=== PATIENT | female | born 1990 | race Caucasian/White ===

== ENCOUNTER → 2019-06-04 11:12 | Outpatient (BNVA) | payer OTHER, SELFPAY | PROVIDERS: Family Provider Internal Medicine; PCP Internal Medicine; Visit Provider Specialist | DX: G43.711 Chronic migraine without aura, intractable, with status migrainosus (principal) | CPT/HCPCS: 64615; J0585 ==

== ENCOUNTER → 2019-08-27 10:01 | Outpatient (BNVA) | payer OTHER, SELFPAY | PROVIDERS: Family Provider Internal Medicine; PCP Internal Medicine; Visit Provider Specialist | DX: G43.711 Chronic migraine without aura, intractable, with status migrainosus (principal); F17.210 Nicotine dependence, cigarettes, uncomplicated | CPT/HCPCS: 64615; J0585 ==

== ENCOUNTER 2019-09-03 16:02 | Emergency (ER) | payer OTHER, SELFPAY ==
[2019-09-03 16:25] VITALS: BP 144/69; PULSE 81; RESP 20; TEMP 37.2; O2SAT 95; BMI 69.4
--- NOTE | 2019-09-03 17:06 | ED_ITS ---
HPI - Skin/Abscess/Foreign Bdy General: Chief complaint: Skin/Abscess/Foreign Body Stated complaint: WOUND L BREAST Time Seen by Provider: 09/03/19 17:04 History of Present Illness: HPI narrative: Patient is a 29-year-old female comes to the ED with a painful lump on breast that has started having bloody drainage. Patient says small lump and soreness on left medial aspect of breast started a little over 2 weeks ago. Patient went to her PCP and they diagnosed it as an abscess and put patient on Bactrim. Patient says the soreness and redness have gotten worse since on the antibiotic. Patient says that yesterday and started draining blood. She said there was no pus draining. She said she went through couple tissues and then bleeding stopped and has not bled since. She rates the discomfort and pain a 5 out of 10, but it goes up to about a 10 when any pressure is placed on sore spot of left breast. Associated symptoms: Deny chills, fever(s), nausea or vomiting Review of Systems Const: Denies: fever(s), chills or fatigue Eyes: Denies: change in vision or eye discomfort ENMT: Denies: throat pain, odynophagia, nasal discharge or nasal congestion Card: Denies: chest pain, palpitations, edema, swelling of feet/ankles, dyspnea on exertion or orthopnea Resp: Denies: dyspnea, productive cough or non-productive cough GI: Denies: abdominal pain, nausea, vomiting, diarrhea, constipation or hematochezia : Denies: flank pain, dysuria or hematuria Musc: Denies: neck pain, back pain or extremity swelling Skin/Breast: Reports: new lesions (Medial aspect of left breast.); Denies: rash Neuro: Denies: headache(s), numbness in extremities or weakness in extremities PFSH ED PFSH: Medical History Anxiety GERD (gastroesophageal reflux disease) PCO (polycystic ovaries) Surgical History H/O tympanostomy History of tonsillectomy Family History Mother Diabetes Family history of thyroid problem Grandmother Breast cancer Paternal great grandmother Family history of thyroid problem Maternal grandmother Heart disease Maternal grandmother Grandfather Family history of thyroid problem Maternal grandfather Heart disease Maternal grandfather Family/Other Family history of thyroid problem Maternal aunt Denies family history of Hyperlipidemia Hypertension Stroke Social History Smoking and tobacco status: current every day smoker cigarettes Packs smoked per day: 0.5 Alcohol intake: current Physical Exam Const: COMMON NORMALS: no acute distress, patient oriented x3 and alert GENERAL APPEARANCE: cooperative and comfortable NUTRITIONAL APPEARANCE: obese HENMT: COMMON NORMALS: normocephalic HEAD & SCALP: normocephalic MOUTH: Normal oral and palatal mucosa present THROAT: posterior oropharynx normal and uvula midline Eye: COMMON NORMALS: Equal, round and reactive pupils present PUPIL: Yes Equal, round and reactive pupils present Neck/C-Spine: COMMON NORMALS: supple GENERAL: Yes normal visual inspection Chest: OTHER: I performed an inspection of the lump on the left breast. I told patient I would wait for the nurse to come in but she insisted to show me a sore spot on left breast anyways. I did not examine the whole breast and I just looked at the area where the sore was. Sore wound on medial side of left breast. It was not near the areola. Sore spot did not have a visible lump and had an area of ecchymosis around it along with some surrounding erythema. There was a little black spot that appeared to be dry blood. Upon palpation there was some tenderness and a little bit of warmth to the skin. No drainage seen. No mass or abscess felt upon palpation. Lesion appears to look like cellulitis possibly. Resp: COMMON NORMALS: normal respiratory effort, No retractions, No use of accessory muscles and clear to auscultation bilaterally AUSCULTATION: clear to auscultation bilaterally Cardio: COMMON NORMALS: regular rate, regular rhythm, S1 normal heart sound present, S2 normal heart sound present, No gallops present (Cardio), No clicks present (Cardio), No murmurs present (Cardio) and Peripheral pulses 2+ throughout RATE: regular rate RHYTHM: regular rhythm HEART SOUNDS: S1 normal heart sound present and S2 normal heart sound present PERIPHERAL PULSES: Peripheral pulses 2+ throughout GI: COMMON NORMALS: Normal to inspection, nondistended, normoactive bowel sounds present, Soft to palpation, non-tender and no masses INSPECTION: Yes central obesity PALPATION: Yes Soft to palpation : COMMON NORMALS: Yes no CVA tenderness BLADDER/KIDNEY EXAM: Yes no CVA tenderness Back/Pelvis: COMMON NORMALS: no CVA tenderness Extremity: COMMON NORMALS: normal to inspection and no pedal edema Neuro: COMMON NORMALS: patient oriented x3 and moves all extremities SENSORIUM/ORIENTATION: Yes alert Skin: GENERAL SKIN EXAM: dry skin Course Vital Signs: Vital signs: Vital Signs Temperature 98.9 F 09/03/19 16:25 Pulse Rate 89 09/03/19 17:09 Respiratory Rate 18 09/03/19 17:09 Blood Pressure 152/71 09/03/19 17:09 Pulse Oximetry 94 09/03/19 17:09 MDM - Skin/Abscess/Foreign Bdy MDM Narrative: Medical decision making narrative: Patient is a 29-year-old female comes to the ED with left breast lesion. Physical exam shows a lesion on the medial aspect of the left breast- tenderness, erythema and warmth on exam. No visible drainage and no mass or abscess palpated. Ultrasound of the left breast was performed and it confirmed no mass, abscess or pocket of fluid seen under lesion. Patient was diagnosed with cellulitis and put on a prescription of amoxicillin. 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 I also recommended patient get mammogram for further evaluation. Patient understood and agreed with plan. Lab Data: Attestation: I reviewed the patient's lab results. Labs: Lab Results 09/03/19 Range/Units 17:50 WBC 10.7 H (4.0-10.0) 10^3/ uL RBC 5.88 H (4.1-5.3) 10^6/u L Hgb 15.0 (11.5-15.3) g/dL Hct 48.2 H (37.0-47.0) % MCV 82.0 (81-99) fL MCH 25.5 L (28.0-34.0) pg MCHC 31.1 (30.0-36.0) g/dL RDW 15.0 (12.1-15.1) % Plt Count 279 (130-400) 10^3/c mm MPV 10.6 H (7.4-10.4) fL Neut % (Auto) 61.7 % Lymph % (Auto) 28.7 % [place] % (Auto) 5.3 % Eos % (Auto) 3.4 % Baso % (Auto) 0.5 % Neut # (Auto) 6.6 (1.8-7.7) 10^3/u L Lymph # (Auto) 3.1 (0.8-4.8) 10^3/u L [place] # (Auto) 0.6 (0.2-0.9) 10^3/u L Eos # (Auto) 0.4 (0.0-0.8) 10^3/u L Baso # (Auto) 0.1 (0.0-0.1) 10^3/u L Nucleated RBC % (a uto) 0 % Nucleated RBCs # 0.0 /100WBC Imaging Data^: US: Attestation: I personally reviewed and interpreted this imaging study as follows: Radiologist's impression: Left breast ultrasound performed. Prelim report showed no mass or pocket of fluid/abscess. Defect appeared to be a small ulcer on skin. Discharge Plan Discharge Patient Disposition: Home, Self-Care Clinical Impression: Cellulitis of left breast Condition: Stable Prescriptions: New amoxicillin 500 mg capsule 500 mg PO BID 10 Days Qty: 20 RF: 0 No Action Kyleena 17.5 mcg/24 hrs (5 yrs) 19.5 mg intrauterine device See Rx Instructions .ROUTE .COMPLEX RF: 0 paroxetine HCl [Paxil] 20 mg tablet 20 mg PO DAILY RF: 0 zonisamide [Zonegran] 100 mg capsule 400 mg PO DAILY RF: 0 omeprazole 20 mg capsule,delayed release(DR/EC) 20 mg PO DAILY RF: 0 albuterol sulfate 90 mcg/actuation HFA aerosol inhaler 2 puff INHALATION TID PRN (Reason: Shortness Of Breath) RF: 0 Discharge Orders: Discharge Order (Routine); Ordered 09/03/19 Ordered By: Nikolas Araujo Referrals: Albaro Hollins DO [Primary Care Provider] - Discharge Diet: Regular Discharge Activity: Resume usual activity Patient Instructions: Cellulitis (ED) Activity Restrictions/Additional Instructions: Call either your PCP or OB/gyne doctor tomorrow to set up an appointment to reevaluate lesion on left breast. I would recommend you getting the mammogram for further evaluation. Take full course of antibiotic as prescribed. Take ibuprofen or Tylenol for pain or fevers. Coding Level of Care Code ED Map Compiler for Mesha Fwd Exam Comprehensive
[2019-09-03 17:09] VITALS: BP 152/71; PULSE 89; RESP 18; O2SAT 94
--- NOTE | 2019-09-03 17:29 | USR_ITS ---
PROCEDURE INFORMATION: Exam: US Left Breast Limited Exam date and time: 09/03/2019 5:38 PM Age: 29 years old Clinical indication: Pain; Mass, lump, or swelling and nipple discharge; Left; Other: infected area with drainage at 9:00 10cms from nipple; Patient HX: On antibiotics for 2 weeks. PT does not think they are working; Additional info: Small lump, bloody drainage. At 9:00 left breast about 10cms from nipple there is an area that appears to be healing. PT states it drained for a while. She has been on antibiotics for 2 weeks and she does not feel it is better. PT also complains that she has had a bloody discharge from her nipple on left TECHNIQUE: Imaging protocol: Limited ultrasound of Left breast with image documentation, including axilla when performed. Exam focused on the search and evaluation for mass. COMPARISON: No relevant prior studies available. FINDINGS: Breast: Targeted evaluation in the patient's area of concern in the 9:00 a.m. left breast, 10 cm from the nipple reveals skin thickening and a focal intradermal oval complex cystic lesion measuring 3.6 x 1.3 x 0.2 cm. This is contained entirely within the skin. No fluid collection or mass is identified within the breast parenchyma or subcutaneous fat. US/US breast LT limited* [id number] IMPRESSION: 1. Findings consistent with cellulitis and an infected or inflamed epidermal inclusion cyst in the 9:00 a.m. left breast, 10 cm from the nipple. 2. Follow-up at a dedicated breast Center is recommended.
[2019-09-03 18:18] LABS: Basophils # 0.1 10^3/uL (0.0-0.1); Basophils % 0.5 %; Eosinophils # 0.4 10^3/uL (0.0-0.8); Eosinophils % 3.4 %; Hematocrit 48.2 % (37.0-47.0); Lymphocytes # 3.1 10^3/uL (0.8-4.8); Lymphocytes % 28.7 %; Mean Corpuscular HGB Conc 31.1 g/dL (30.0-36.0); Mean Corpuscular Hemoglobin 25.5 pg (28.0-34.0); Mean Platelet Volume 10.6 fL (7.4-10.4); Monocytes # 0.6 10^3/uL (0.2-0.9); Monocytes % 5.3 %; Neutrophils # 6.6 10^3/uL (1.8-7.7); Neutrophils % 61.7 %; Nucleated Red Blood Cells % 0 %; Platelet Count 279 10^3/cmm (130-400); Red Blood Count 5.88 10^6/uL (4.1-5.3); White Blood Count 10.7 10^3/uL (4.0-10.0)
[2019-09-03 18:33] LABS: Alanine Aminotransferase 30 U/L (0-33); Alkaline Phosphatase 62 IU/L (35-105); Anion Gap 12.9 (5-19); Aspartate Amino Transferase 22 U/L (0-32); Blood Urea Nitrogen 6 mg/dL (6-20); Calcium 9.3 mg/dL (8.5-10.5); Carbon Dioxide 27 mmol/L (22-29); Chloride 102 mmol/L (98-107); Globulin 2.4 g/dL (1.3-4.6); Glomerular Filtration Rate 99.6 mL/min (90-130); Glucose 90 mg/dL (65-115); Osmolality Calculated 281 mOsm/kg (285-295); Potassium 3.9 mmol/L (3.5-5.1); Sodium 138 mmol/L (136-145); Total Bilirubin 0.4 mg/dL (0.15-1.2); Total Protein 6.4 g/dL (6.6-8.7)
[2019-09-03] MEDS: HYDROcodone-acetaminophen 7.5-325 mg Tablet 1 TAB PO (18:34)
[2019-09-03 18:35] VITALS: BP 129/68; PULSE 88; RESP 16; O2SAT 93
== END 2019-09-03 18:39 | disposition home or self-care (01) ==
PROVIDERS: Emergency Provider Physician Assistant; Family Provider Internal Medicine; PCP Internal Medicine
DX: N61.0 Mastitis without abscess (principal); F17.210 Nicotine dependence, cigarettes, uncomplicated
CPT/HCPCS: 12345; 76642; 80053; 85025; 87040; 99282; 99283

== ENCOUNTER → 2019-11-26 10:44 | Outpatient (BNVA) | payer OTHER, SELFPAY | PROVIDERS: Family Provider Internal Medicine; PCP Internal Medicine; Visit Provider Specialist | DX: G43.711 Chronic migraine without aura, intractable, with status migrainosus (principal); F17.210 Nicotine dependence, cigarettes, uncomplicated | CPT/HCPCS: 64615; J0585 ==

== ENCOUNTER → 2020-02-18 09:12 | Outpatient (BNVA) | payer OTHER, SELFPAY | PROVIDERS: PCP Internal Medicine; Visit Provider Specialist | DX: G43.711 Chronic migraine without aura, intractable, with status migrainosus (principal); F17.210 Nicotine dependence, cigarettes, uncomplicated | CPT/HCPCS: 64615; J0585 ==

== ENCOUNTER → 2020-06-16 08:40 | Outpatient (BNVA) | payer OTHER, SELFPAY | PROVIDERS: PCP Internal Medicine; Visit Provider Specialist | DX: G43.711 Chronic migraine without aura, intractable, with status migrainosus (principal); F17.210 Nicotine dependence, cigarettes, uncomplicated | CPT/HCPCS: 64615; J0585 ==

== ENCOUNTER → 2020-09-08 08:57 | Outpatient (BNVA) | payer OTHER, SELFPAY | PROVIDERS: PCP Internal Medicine; Visit Provider Specialist | DX: G43.711 Chronic migraine without aura, intractable, with status migrainosus (principal); F17.210 Nicotine dependence, cigarettes, uncomplicated | CPT/HCPCS: 64615; J0585 ==

== ENCOUNTER → 2020-12-01 08:13 | Outpatient (BNVA) | payer OTHER, SELFPAY | PROVIDERS: PCP Internal Medicine; Visit Provider Specialist | DX: G43.709 Chronic migraine without aura, not intractable, without status migrainosus (principal); F17.210 Nicotine dependence, cigarettes, uncomplicated | CPT/HCPCS: 64615; J0585 ==

== ENCOUNTER → 2021-03-09 08:10 | Outpatient (BNVA) | payer OTHER, MEDICAID, SELFPAY | PROVIDERS: PCP Internal Medicine; Visit Provider Specialist | DX: G43.711 Chronic migraine without aura, intractable, with status migrainosus (principal) | CPT/HCPCS: 64615; J0585 ==